=== PATIENT | male | born 1980 | race African-American/Black ===

== ENCOUNTER 2022-11-13 02:18 | Emergency (ER) | payer OTHER ==
[2022-11-13 02:55] LABS: #Eosinphils 0.1 10x3/uL (0.0-0.5); #Monocytes 0.4 10x3/uL (0.0-1.1); #Neutrophils 4.2 10x3/uL (1.5-8.4); %Basophils 0.6 % (0.0-2.0); %Eosinophils 1.9 % (0.0-6.0); %Lymphocytes 30.9 % (18.0-47.0); %Monocytes 5.9 % (0.0-10.0); %Neutrophils 60.4 % (40.0-75.0); Hemoglobin 12.1 g/dL (13.5-17.5); Mean Corpuscular HGB CONC 37.5 g/dL (32.0-36.0); Mean Corpuscular Hemoglobin 27.2 pg (27.0-33.0); Mean Corpuscular Volume 72.6 fl (81.2-95.1); Mean Platelet Volume 9.7 fl (7.4-10.4); Platelet Count 344 10x3/uL (150-450); Red Blood Cell (RBC) Count 4.45 10x6/uL (4.32-5.72); White Blood Cell (WBC) Count 6.9 10x3/uL (3.5-10.5)
[2022-11-13 03:00] LABS: Actual Bicarbonate (HCO3v) 24.5 mEq/L (22-28); Base Excess 2.9 mEq/L (-2 - +2); Calcium, Ionized (venous) 1.03 mmol/L (1.16-1.32); Chloride (VBG) 96 mmol/L (98-106); Hematocrit-VBG 39 % (42.0-52.0); Hemoglobin (Hb) 13.4 g/dL (13.2-17.3); Puncture Site Other Site; RapidComm Collect By CBN; Sodium 130.4 mmol/L (133-146); pH (venous) 7.546 (7.32-7.43)
[2022-11-13] MEDS ORDERED: Nitroglycerin 0.4 MG TAB 1 EACH ONE (03:32)
[2022-11-13] MEDS ORDERED: Naloxone HCl 0.4 mg/ml Vial ONE (03:35)
[2022-11-13 03:40] LABS: Acetaminophen Less than 10 mcg/mL (10.0-30.0); Alcohol Less than 10.0 mg/dL (Less than 10); Lipase 9 U/L (8-78); Salicylate Less than 8.0 mg/dL (15.0-30.0)
[2022-11-13 03:44] LABS: Anion Gap 17 mmol/L (10-20); BUN (Urea Nitrogen) 22 mg/dL (8.9-20.6); Calc. Creatinine Clearance 0 mL/min (70-130); Carbon Dioxide 20 mmol/L (22-29); Chloride 98 mmol/L (98-107); Potassium 3.4 mmol/L (3.5-5.1); Sodium 132 mmol/L (136-145)
[2022-11-13 03:45] LABS: ALT (SGPT) 28 U/L (8-55); AST (SGOT) 29 U/L (5-34); Albumin 3.2 g/dL (3.5-5.0); Alkaline Phosphatase 158 U/L (40-110); Bilirubin, Total 1.5 mg/dL (0.2-1.2); Calcium 8.1 mg/dL (7.8-10.44); Estimated GFR 59; Globulin 3.9 g/dL (2.4-3.5); Magnesium 1.8 mg/dL (1.6-2.6); Protein, Total 7.1 g/dL (6.0-8.3)
[2022-11-13] MEDS ORDERED: Furosemide 40 MG/4 ML VIAL ONE (03:46)
[2022-11-13 03:51] LABS: Glucose 411 mg/dL (70-105)
[2022-11-13 03:59] LABS: CKMB 2.5 ng/mL (0-6.6)
[2022-11-13] MEDS ORDERED: Aspirin Chewable 81 MG TAB ONE (04:15)
[2022-11-13 04:16] LABS: INR-International Normal Ratio 1.2; PTT 27.3 sec (22.0-33.0); Prothrombin Time 13.3 sec (9.5-12.1)
[2022-11-13] MEDS ORDERED: Potassium Chloride 20 MEQ/100 ML PREMIX BAG ONE (04:16)
[2022-11-13] MEDS ORDERED: Insulin Regular 300 UNITS/3 ML VIAL ONE (04:16)
[2022-11-13 04:34] LABS: Clarity Clear (Clear); Leukocyte Negative (Negative)
[2022-11-13 04:35] LABS: Bilirubin Neg (Negative); Blood, Urine Negative (Negative); Glucose, Urine (Dipstick) >=1000 mg/dL (Negative); Ketone, Urine Negative (Negative); Nitrite Negative (Negative); Protein, Urine (Dipstick) 30 mg/dl (Neg-Trace); Urobilinogen Normal mg/dL (Less than 2)
[2022-11-13 04:40] LABS: Bacteria/HPF None Seen HPF (None Seen); CAUTI Indications for Culture Alt mental st,lethar; RBC/HPF 0-3 HPF (0-3); Squamous Epithelial None Seen HPF (0-3); WBC/HPF None Seen HPF (0-3)
[2022-11-13 04:42] LABS: Amphetamine Detected (NotDetected); Barbiturates Screen Not Detected (NotDetected); Benzodiazepine Screen Not Detected (NotDetected); Cocaine Metabolite Screen Not Detected (NotDetected); Methadone Not Detected (NotDetected); Methamphetamine Detected (NotDetected); Opiate Screen Not Detected (NotDetected); Oxycodone Screen Not Detected (NotDetected); Phencyclidine (PCP) Not Detected (NotDetected); THC/Cannabinoid Screen Not Detected (NotDetected); Tricyclic Screen Detected (NotDetected)
[2022-11-13 04:43] LABS: Urine Culture Reflex No No
== END 2022-11-13 05:46 | disposition short-term general hospital (02) ==
LOC: CSHERS 02:18
DX: I21.4 Non-ST elevation (NSTEMI) myocardial infarction (principal); I11.0 Hypertensive heart disease with heart failure; I50.9 Heart failure, unspecified; E78.5 Hyperlipidemia, unspecified; E10.9 Type 1 diabetes mellitus without complications; F17.210 Nicotine dependence, cigarettes, uncomplicated; Z79.4 Long term (current) use of insulin
CPT/HCPCS: 36416; 51702; 70450; 71045; 80053; 80306; 80307; 81001; 82010; 82553; 82805; 83690; 83735; 83880; 84443; 84484; 85025; 85610; 85730; 93005; 94660; 94760; 96374; 96375; J1815; J1940; J2310; J3480